=== PATIENT | male | born 1985 | race Caucasian/White ===

== ENCOUNTER 2022-12-07 12:58 | Emergency (ER) | payer OTHER ==
[~2022-12-07] VITALS: Ht 180.3 cm; Wt 113.0 kg
[2022-12-07 14:12] VITALS: O2SAT 99
[2022-12-07 14:40] LABS: BASOPHILS % 0.5 % (0.0-2.0); EOSINOPHILS % 0.4 % (0.0-5.0); HEMATOCRIT. 47.7 % (42.0-52.0); HEMOGLOBIN. 16.2 g/dL (14.0-18.0); LYMPHOCYTES % 17.8 % (20.0-50.0); MEAN CORPUSCULAR HEMOGLOBIN 29.1 pg (28.0-32.0); MEAN CORPUSCULAR VOLUME 85.7 fL (80.0-94.0); MEAN PLATELET VOLUME 8.2 fl (7.4-10.4); MONOCYTES % 8.5 % (2.0-8.0); NEUTROPHILS % 72.8 % (40.0-76.0); PLATELET 410 x1000/uL (130-400); RED BLOOD CELL COUNT 5.57 mill/uL (4.7-6.1); RED CELL DISTRIBUTION WIDTH 13.5 % (11.6-14.6)
[2022-12-07 14:51] LABS: CHLORIDE 105 mEq/L (98-107)
[2022-12-07] MEDS ORDERED: ONDANSETRON HCL 4MG/2ML INJ IV STA (14:53)
[2022-12-07] MEDS ORDERED: MORPHINE SULFATE 4 MG/ML CPJ (NOT FOR IM USE) IV STA (14:53)
[2022-12-07] MEDS ORDERED: SODIUM CHLORIDE 0.9% 1,000 ML IV ONE (15:00)
[2022-12-07 15:22] LABS: INR 1.1; PARTIAL THROMBOPLASTIN TIME 30.1 sec (23.4-31.0); PROTHROMBIN TIME 11.6 sec (9.6-11.0)
[2022-12-07] MEDS ORDERED: ONDA4TAB50 MT (18:41)
[2022-12-07 18:46] VITALS: BP 138/80; PULSE 71; RESP 18; TEMP 98.1
== END 2022-12-07 18:56 | disposition home or self-care (01) ==
LOC: ER 12:58
DX: R10.12 Left upper quadrant pain (principal); F41.9 Anxiety disorder, unspecified; K21.9 Gastro-esophageal reflux disease without esophagitis; I10 Essential (primary) hypertension
CPT/HCPCS: 36415; 71045; 74176; 80053; 83690; 85025; 85610; 85730; 86850; 86900; 86901; 93005; 96374; 99285; J2405; J2270